=== PATIENT | female | born 1940 | race Caucasian/White ===

== ENCOUNTER 2019-07-16 17:30 | Inpatient (IN) | payer OTHER ==
--- NOTE | 2019-07-16 18:13 | RAD REPORT ---
EXAM DESCRIPTION: RAD - Chest Single View - 07/16/2019 6:00 pm CLINICAL HISTORY: DYSPNEA COMPARISON: None TECHNIQUE: AP portable chest image was obtained 07/16/2019 6:00 pm . FINDINGS: No peripheral mass or consolidation. No failure or volume overload. Fullness of the right side mediastinum is believed to be summation of vasculature in the affects of a slightly shallow insp iratory effort. Large hiatal hernia is present. Heart and vasculature are normal. No measurable pleur al effusion and no pneumothorax. No acute bony abnormality seen. No acute aortic findings suspected. IMPRESSION: No acute cardiopulmonary process. Large hiatal hernia.
[2019-07-16 18:27] LABS: Protime INR 0.93
[2019-07-16 18:53] LABS: ALT/SGPT 15 U/L (12-78); AST/SGOT 11 U/L (15-37); Albumin 3.4 g/dL (3.4-5.0); Alkaline Phosphatase 68 U/L (45-117); BUN Blood Urea Nitrogen 31 mg/dL (7-18); Bicarbonate 28 mmol/L (21-32); Bilirubin Direct < 0.1 mg/dL (0-0.2); Bilirubin Total 0.2 mg/dL (0.2-1.0); Glucose Level 113 mg/dL (74-106); Magnesium 2.6 mg/dL (1.8-2.4); NT PRO-BNP 290 pg/mL (<450); Potassium 4.5 mmol/L (3.5-5.1); Protein, Total 7.3 g/dL (6.4-8.2); Sodium Level 140 mmol/L (136-145); Troponin (Emerg Dept Use Only) < 0.02 ng/mL (0.0-0.045)
[2019-07-16 20:46] LABS: Absolute Lymphocytes (CBC) 4.8 K/uL (0.7-4.9); Basophils % 0.1 % (0-1.3); Hematocrit 19.7 % (36.0-45.0); Lymphocytes % 36.9 % (15.3-44.8); MPV 10.8 fL (7.6-11.3); RBC Red Blood Cell Count 3.08 M/uL (3.86-4.86)
[2019-07-16 20:51] LABS: Platelet Estimate DECR; Urine White Blood Cell Casts OK
[2019-07-16 20:52] LABS: Anisocytosis 1+; Blood Morphology Comment NOTED (NOT SEEN); Hypochromasia 3+; Platelets, Giant PRESENT
--- NOTE | 2019-07-16 21:17 | EDPHYS ---
Physician Documentation [facility] Name: Gallo Plascencia Age: 79 yrs Sex: Female : 1940 Arrival Date: 07/16/2019 Time: 17:33 Bed 4 Private MD: Tacho Hernandez R ED Physician Juan Diego Wiley HPI: 07/15 18:20 This 79 yrs old Female presents to ER via Ambulatory with complaints of snw Anemia. 18:20 Onset: The symptoms/episode began/occurred acutely. Associated signs and symptoms: snw Pertinent positives: fatigue. The patient has not experienced similar symptoms in the past. The patient has been recently seen by a physician: the patient's primary care provider, Dr. Ochoa. Historical: - Allergies: 17:43 No Known Allergies; em - Home Meds: 17:43 None [Active]; em - PMHx: 17:43 None; em - PSHx: 17:43 Hysterectomy; em - Immunization history:: Adult Immunizations not up to date. - Social history:: Smoking status: Patient denies any tobacco usage or history of. ROS: 18:14 Eyes: Negative for injury, pain, redness, and discharge, Neck: Negative for injury, snw pain, and swelling, Abdomen/GI: Negative for abdominal pain, nausea, vomiting, diarrhea, and constipation, Back: Negative for injury and pain, : Negative for injury, bleeding, discharge, and swelling, MS/Extremity: Negative for injury and deformity, mild right ankle pain with some pain moving up to hip Skin: Negative for injury, rash, and discoloration, Neuro: Negative for headache, weakness, numbness, tingling, and seizure. 18:14 Constitutional: Positive for fatigued over past few months, hx of allergies, pt began coughing and having severe congestion, Dr. Ochoa gave abx and steroids, Last week pt had another visit with labs. Dr. Ochoa had pt repeat labs Sunday. Pt instructed to come to ED and get blood 2nd to severe anemia. 18:14 ENT: Positive for nasal discharge, sinus congestion, sinus pain. 18:14 Cardiovascular: Positive for chest pain, with movement. 18:14 Respiratory: Positive for cough, dyspnea on exertion, orthopnea, shortness of breath. Exam: 18:09 Abdomen/GI: Soft, non-tender, with normal bowel sounds. No distension or tympany. No snw guarding or rebound. No evidence of tenderness throughout. Guaiac negative Back: No spinal tenderness. No costovertebral tenderness. Full range of motion. Skin: Warm, dry with normal turgor. Normal color with no rashes, no lesions, and no evidence of cellulitis. MS/ Extremity: Pulses equal, no cyanosis. Neurovascular intact. Full, normal range of motion. Neuro: Awake and alert, GCS 15, oriented to person, place, time, and situation. Cranial nerves II-XII grossly intact. Motor strength 5/5 in all extremities. Sensory grossly intact. Cerebellar exam normal. Normal gait. Psych: Awake, alert, with orientation to person, place and time. Behavior, mood, and affect are within normal limits. 18:09 Constitutional: This is a well developed, well nourished patient who is awake, alert, and in no acute distress. Head/Face: Normocephalic, atraumatic. Eyes: Pupils equal round and reactive to light, extra-ocular motions intact. Lids and lashes normal. Conjunctiva and sclera are non-icteric and not injected. Cornea within normal limits. Periorbital areas with no swelling, redness, or edema. ENT: Nares patent. No nasal discharge, no septal abnormalities noted. Tympanic membranes are normal and external auditory canals are clear. Oropharynx with redness and white patches, no swelling, or masses, exudates, or evidence of obstruction, uvula midline. Mucous membranes moist. Neck: Trachea midline, no thyromegaly or masses palpated, and no cervical lymphadenopathy. Supple, full range of motion without nuchal rigidity, or vertebral point tenderness. No Meningismus. Chest/axilla: Normal chest wall appearance and motion. Nontender with no deformity. No lesions are appreciated. 18:09 Cardiovascular: Rate: tachycardic, Rhythm: regular, Heart sounds: normal. 18:09 Respiratory: the patient does not display signs of respiratory distress, Respirations: shallow respirations, that is moderate, hoarse voice, Breath sounds: bronchial sounds, that are mild, are heard diffusely. Vital Signs: 17:39 BP 182 / 83; Pulse 107; Resp 20; Temp 98.6(O); Pulse Ox 97% on R/A; Weight 72.12 kg; em Height 5 ft. 3 in. (160.02 cm); Pain 0/10; 18:40 BP 150 / 60; Pulse 83; Resp 17; Pulse Ox 97% on R/A; tw2 19:30 BP 132 / 63; Pulse 79; Resp 18; Pulse Ox 98% on R/A; wh 20:30 BP 134 / 64; Pulse 78; Resp 18; Pulse Ox 100% on R/A; wh 23:00 BP 123 / 62; Pulse 89; Resp 18; Pulse Ox 98% ; wh 17:39 Body Mass Index 28.17 (72.12 kg, 160.02 cm) em MDM: 17:56 Patient medically screened. snw 21:13 Data reviewed: vital signs, nurses notes, lab test result(s), EKG, radiologic studies. w Physician consultation: Tera Messina was called at 21:14, was contacted at 21:14, regarding admission, to the telemetry unit. Dr. Messina does not want platelet transfusion. Lab notified for cancellation. Asked to make sure peripheral smear was set up.. 07/15 17:45 Order name: Basic Metabolic Panel; Complete Time: 18:53 snw 07/15 17:45 Order name: CBC with Diff; Complete Time: 21:55 snw 07/15 17:45 Order name: LFT's; Complete Time: 18:53 snw 07/15 17:45 Order name: Magnesium; Complete Time: 18:53 snw 07/15 17:45 Order name: NT PRO-BNP; Complete Time: 18:53 snw 07/15 17:45 Order name: PT-INR; Complete Time: 18:44 snw 07/15 17:45 Order name: Troponin (emerg Dept Use Only); Complete Time: 18:53 snw 07/15 17:45 Order name: TS snw 07/15 17:45 Order name: TSH; Complete Time: 18:53 snw 07/15 20:51 Order name: CBC Smear Scan EDMS 07/15 20:54 Order name: Add On-Lab snw 07/15 20:58 Order name: Ferritin; Complete Time: 21:37 snw 07/15 20:58 Order name: TIBC; Complete Time: 21:37 snw 07/15 20:58 Order name: Retic Count; Complete Time: 21:26 snw 07/15 17:45 Order name: XRAY Chest (1 view); Complete Time: 18:24 snw 07/15 17:45 Order name: EKG; Complete Time: 17:46 snw 07/15 17:45 Order name: Cardiac monitoring; Complete Time: 18:24 snw 07/15 17:45 Order name: EKG - Nurse/Tech; Complete Time: 18:24 snw 07/15 17:45 Order name: IV Saline Lock; Complete Time: 18:24 snw 07/15 17:45 Order name: Labs collected and sent; Complete Time: 18:24 snw 07/15 20:59 Order name: Haptoglobin EDWA 07/15 20:59 Order name: BB Add On EDWA 07/15 21:06 Order name: Packed RBC Leukored EDWA 07/15 21:11 Order name: ABO/RH no charge; Complete Time: 21:15 EDWA 07/15 21:30 Order name: Manual Differential; Complete Time: 21:55 EDWA 07/15 17:45 Order name: O2 Per Protocol; Complete Time: 18:45 snw 07/15 17:45 Order name: O2 Sat Monitoring; Complete Time: 18:45 snw 07/15 20:59 Order name: Consent for Blood Transfusion; Complete Time: 21:53 snw Administered Medications: No medications were administered Disposition: 07/16/19 21:17 Hospitalization ordered by Tera Messina for Inpatient Admission. Preliminary diagnosis are Anemia, unspecified, Thrombocytopenia, unspecified. - Bed requested for Telemetry/MedSurg (Inpatient). - Status is Inpatient Admission. - Condition is Stable. - Problem is new. - Symptoms are unchanged. Addendum: 07/18/2019 18:19 Co-signature as Attending Physician, Juan Diego Wiley MD. m a2 Signatures: Dispatcher [employer] [facility] Beatris Diaz, HAIR BOILER-C HAIR BOILER-Csnw Mert Manzano, RN LOVELY Aleah Henderson RN RN tl1 Hammad Berumen Juan Diego Wiley MD MD md2 Bakari Granados 2 Corrections: (The following items were deleted from the chart) 07/15 18:14 18:09 Constitutional: This is a well developed, well nourished patient who is awake, snw alert, and in no acute distress. Head/Face: Normocephalic, atraumatic. Eyes: Pupils equal round and reactive to light, extra-ocular motions intact. Lids and lashes normal. Conjunctiva and sclera are non-icteric and not injected. Cornea within normal limits. Periorbital areas with no swelling, redness, or edema. ENT: Nares patent. No nasal discharge, no septal abnormalities noted. Tympanic membranes are normal and external auditory canals are clear. Oropharynx with no redness, swelling, or masses, exudates, or evidence of obstruction, uvula midline. Mucous membranes moist. Neck: Trachea midline, no thyromegaly or masses palpated, and no cervical lymphadenopathy. Supple, full range of motion without nuchal rigidity, or vertebral point tenderness. No Meningismus. Chest/axilla: Normal chest wall appearance and motion. Nontender with no deformity. No lesions are appreciated. snw 20:59 20:58 FERRITIN+C.LAB.BRZ ordered. [facility] 21:16 21:13 Physician consultation: Tera Messina was called at 21:14, was contacted at snw 21:14, regarding admission, to the telemetry unit. Dr. Messina does not want platelet transfusion. Lab notified for cancellation, snw 21:18 20:59 BB Add On+BB.LAB.BRZ ordered. [facility] 21:18 21:00 ABO/RH typing ordered. [facility] 21:51 21:31 Slides for Pathologist Review ordered. [facility] 23:08 21:17 Hospitalization Ordered by Tera Messina for Inpatient Admission. Preliminary tl1 diagnosis is Anemia, unspecified; Thrombocytopenia, unspecified. Bed requested for Telemetry/MedSurg (Inpatient). Status is Inpatient Admission. Condition is Stable. Problem is new. Symptoms are unchanged. snw 23:08 23:08 07/16/2019 21:17 Hospitalization Ordered by Tera Messina for Inpatient mw2 Admission. Preliminary diagnosis is Anemia, unspecified; Thrombocytopenia, unspecified. Bed requested for Telemetry/MedSurg (Inpatient). Status is Inpatient Admission. Condition is Stable. Problem is new. Symptoms are unchanged. tl1 23:27 23:08 07/16/2019 21:17 Hospitalization Ordered by Tera Messina for Inpatient Admission. Preliminary diagnosis is Anemia, unspecified; Thrombocytopenia, unspecified. Bed requested for Telemetry/MedSurg (Inpatient). Status is Inpatient Admission. Condition is Stable. Problem is new. Symptoms are unchanged. mw2
--- NOTE | 2019-07-16 21:17 | ER ---
Nurse's Notes [facility] Name: Gallo Plascencia Age: 79 yrs Sex: Female : 1940 Arrival Date: 07/16/2019 Time: 17:33 Bed 4 Private MD: Tacho Hernandez R Diagnosis: Anemia, unspecified;Thrombocytopenia, unspecified Presentation: 07/15 17:39 Chief complaint: Patient states: has had shortness of breath with cough for 1 month, em also reports fatigue, had lab work done yesterday and PCP called her today and told her to come to the ED because severely anemic, denies rectal bleeding or coughing up blood, denies fever. Coronavirus screen: Proceed with normal triage. Patient denies a cough. Patient denies shortness of breath or difficulty breathing. Patient denies measured and/or subjective temperature greater than 100.4F prior to today's visit. Patient denies travel on a cruise ship or to a country the [facility] currently lists as an affected area. Patient denies contact with known and/or suspected case of COVID-19. Ebola Screen: Patient negative for fever greater than or equal to 101.5 degrees Fahrenheit, and additional compatible Ebola Virus Disease symptoms Patient denies exposure to infectious person. Patient denies travel to an Ebola-affected area in the 21 days before illness onset. No symptoms or risks identified at this time. Initial Sepsis Screen: Does the patient meet any 2 criteria? HR > 90 bpm. No. Patient's initial sepsis screen is negative. Does the patient have a suspected source of infection? No. Patient's initial sepsis screen is negative. Risk Assessment: Do you want to hurt yourself or someone else? Patient reports no desire to harm self or others. Onset of symptoms was June 17, 2019. 17:39 Method Of Arrival: Ambulatory em 17:39 Acuity: NIYAH 3 em Historical: - Allergies: 17:43 No Known Allergies; em - Home Meds: 17:43 None [Active]; em - PMHx: 17:43 None; em - PSHx: 17:43 Hysterectomy; em - Immunization history:: Adult Immunizations not up to date. - Social history:: Smoking status: Patient denies any tobacco usage or history of. Screenin:12 Abuse screen: Denies threats or abuse. Nutritional screening: No deficits noted. tw2 Tuberculosis screening: No symptoms or risk factors identified. Fall Risk None identified. Assessment: 17:45 Reassessment: "really i feel fine and i am surprised to be here but my doctor called tw2 and said i may need blood and that i am loosing it somewhere, but i havent had any bleeding". General: Appears in no apparent distress. well groomed, Behavior is calm, cooperative, appropriate for age. Pain: Denies pain. Neuro: Level of Consciousness is awake, alert, obeys commands, Oriented to person, place, time, situation. Cardiovascular: Heart tones S1 S2 Patient's skin is warm and dry. Respiratory: Airway is patent Respiratory effort is even, unlabored, Respiratory pattern is regular, symmetrical, Breath sounds are clear bilaterally. GI: No signs and/or symptoms were reported involving the gastrointestinal system. Abdomen is flat, Bowel sounds present X 4 quads. : No signs and/or symptoms were reported regarding the genitourinary system. EENT: No signs and/or symptoms were reported regarding the EENT system. Derm: No signs and/or symptoms reported regarding the dermatologic system. Musculoskeletal: Range of motion: intact in all extremities. 18:40 Reassessment: Patient appears in no apparent distress at this time. No changes from 2 previously documented assessment. Patient and/or family updated on plan of care and expected duration. Pain level reassessed. Patient is alert, oriented x 3, equal unlabored respirations, skin warm/dry/pink. 19:15 Reassessment: Patient appears in no apparent distress at this time. Patient and/or family updated on plan of care and expected duration. Pain level reassessed. Patient is alert, oriented x 3, equal unlabored respirations, skin warm/dry/pink. 20:30 Reassessment: Patient appears in no apparent distress at this time. No changes from previously documented assessment. Patient and/or family updated on plan of care and expected duration. Pain level reassessed. Patient is alert, oriented x 3, equal unlabored respirations, skin warm/dry/pink. Explained need to recollect blood as initial draw hemmolyzed. 22:00 Reassessment: Patient appears in no apparent distress at this time. No changes from previously documented assessment. Patient and/or family updated on plan of care and expected duration. Pain level reassessed. Patient is alert, oriented x 3, equal unlabored respirations, skin warm/dry/pink. Explained POC need for admit. 23:09 Reassessment: Patient appears in no apparent distress at this time. No changes from previously documented assessment. Patient is alert, oriented x 3, equal unlabored respirations, skin warm/dry/pink. Vital Signs: 17:39 BP 182 / 83; Pulse 107; Resp 20; Temp 98.6(O); Pulse Ox 97% on R/A; Weight 72.12 kg; em Height 5 ft. 3 in. (160.02 cm); Pain 0/10; 18:40 BP 150 / 60; Pulse 83; Resp 17; Pulse Ox 97% on R/A; tw2 19:30 BP 132 / 63; Pulse 79; Resp 18; Pulse Ox 98% on R/A; wh 20:30 BP 134 / 64; Pulse 78; Resp 18; Pulse Ox 100% on R/A; wh 23:00 BP 123 / 62; Pulse 89; Resp 18; Pulse Ox 98% ; wh 17:39 Body Mass Index 28.17 (72.12 kg, 160.02 cm) em ED Course: 17:33 Patient arrived in ED. am2 17:33 Tacho Hernandez MD is Private Physician. am2 17:43 Triage completed. em 17:43 Arm band placed on. em 17:44 Beatris Diaz FNP-C [facility]. snw 17:44 Juan Diego Wiley MD is Attending Physician. snw 17:50 Bed in low position. Call light in reach. quality assurance monitor final on. Pulse ox on. NIBP on. tw2 18:01 XRAY Chest (1 view) In Process Unspecified. EDMS 18:16 Inserted saline lock: 20 gauge in left antecubital area, using aseptic technique. Blood tw2 collected. 18:21 Warm blanket given. [facility] 18:22 Initial lab(s) drawn, by tn, sent to lab. EKG done, by ED staff, reviewed by Juan Diego Wiley MD T\\T\\S collected, blood band applied to patient. 18:23 TSH Sent. Lanie 18:23 TS Sent. Lanie 18:23 Basic Metabolic Panel Sent. 5 18:23 CBC with Diff Sent. 5 18:23 LFT's Sent. 5 18:23 Magnesium Sent. 5 18:23 NT PRO-BNP Sent. 5 18:23 PT-INR Sent. 5 18:24 Troponin (emerg Dept Use Only) Sent. 5 18:39 Zeynep San, RN is Primary Nurse. tw2 18:43 Served as a vp analytics during rectal exam. 5 19:11 Report given to LOVELY Cueva. [facility] 21:16 Tera Messina is Hospitalizing Provider. [facility] 23:27 Patient admitted, IV remains in place. Administered Medications: No medications were administered Outcome: 21:17 Decision to Hospitalize by Provider. [facility] 23:26 Admitted to Med/surg accompanied by tech, via wheelchair, room 211, with chart, Report called to Apple Dumont 23:26 Condition: stable 23:26 Instructed on the need for admit. 23:27 Patient left the ED. Signatures: Dispatcher [employer] EDBeatris Wang, COLLAR STARCHER-C COLLAR STARCHER-Csnw Mert Manzano, RN RN Zeynep Ayon, RN RN 2 Stephania Junior 5 Lia Khalil Hammad Melendez
[2019-07-16 21:22] LABS: RBC Red Blood Cell Count 3.22 M/uL (3.86-4.86)
[2019-07-16 21:29] LABS: Ferritin 2.1 ng/mL (8-388)
--- NOTE | 2019-07-16 23:13 | P.HP ---
Certification for Inpatient Patient admitted to: Observation With expected LOS: <2 Midnights Practitioner: I am a practitioner with admitting privileges, knowledge of patient current condition, hospital course, and medical plan of care. Services: Services provided to patient in accordance with Admission requirements found in Title 42 Section 412.3 of the Code of Federal Regulations Patient History Date of Service: 07/16/19 Reason for admission: Anemia History of Present Illness: 79-year-old woman with a history of allergic reaction and asthma was referred to the emergency department by her PCP because her hemoglobin is low. Patient reports recent fatigue especially with exertion. She denied any melena or bright red blood per rectum or vagina bleeding or hematemesis. She reports a recent sores on her tongue and lips. Her hemoglobin the ED noted to be 5.5. [place] [address]. Iron profile shows very low iron percentage saturation denoting severe iron deficiency. Patient is hospitalized for further management. Allergies tetracycline Adverse Reaction (Verified 07/16/19 23:38) Anaphylaxis Home Medications: NK [No Home Meds] 07/17/19 - Past Medical/Surgical History Diabetic: No -: Asthma -: Allergy -: GERD -: Right ankle surgery -: Skin squamous cell carcinoma excision - Family History Mother -: Cancer (Brain) - Social History Smoking Status: Never smoker Alcohol use: No CD- Drugs: No Place of Residence: Home Review of Systems Other: Except as documented, all other systems reviewed and negative. Physical Examination - Physical Exam General: Alert, In no apparent distress, Oriented x3 HEENT: Normocephalic, PERRLA, Mucous membr. moist/pink, Sclerae nonicteric Neck: Supple, JVD not distended Respiratory: Clear to auscultation bilaterally, Normal air movement Cardiovascular: No edema, Regular rate/rhythm, Normal S1 S2 Capillary refill: <2 Seconds Gastrointestinal: Normal bowel sounds, Soft and benign, Non-distended, No tenderness Musculoskeletal: No swelling, No erythema Integumentary: No rashes Neurological: Normal speech, Normal strength at 5/5 x4 extr - Studies Laboratory Data (last 24 hrs) 07/16/19 20:34: WBC 13.0 H, Hgb 5.5 L*, Hct 19.7 L*, Plt Count 19 L* 07/16/19 18:00: PT 11.0, INR 0.93 07/16/19 18:00: Sodium 140, Potassium 4.5, BUN 31 H, Creatinine 1.18, Glucose 113 H, Magnesium 2.6 H, Total Bilirubin 0.2, AST 11 L, ALT 15, Alkaline Phosphatase 68 Assessment and Plan - Problems (Diagnosis) (1) Anemia Current Visit: Yes Status: Acute (2) Iron deficiency Current Visit: Yes Status: Acute (3) Thrombocytopenia Current Visit: Yes Status: Acute (4) Asthma Current Visit: Yes Status: Acute - Plan Place under observation. Obtain peripheral smear. Transfuse 2 units PRBC. Patient is not actively bleeding. Will not transfuse platelets at this time until levels falls below 15, on there is active bleeding. The patient will need outpatient follow up with hematology for bone marrow biopsy and colonoscopy. Iron supplementation after blood transfusion. Monitor CBC. Albuterol p.r.n. Protonix - Advance Directives Does patient have a Living Will: No Does patient have a Durable POA for Healthcare: No
[2019-07-16 23:38] VITALS: O2SAT 98
[2019-07-16] MEDS ORDERED: ONDANSETRON 4 MG/2 ML VIAL IV PRN (23:42)
[2019-07-16] MEDS ORDERED: ALBUTEROL 2.5 MG/3 ML NEB SOL NEB PRN (23:42)
[2019-07-17] MEDS: ACETAMINOPHEN 500 MG TAB PO PRN ×3 (00:22→20:53)
[2019-07-17] MEDS ORDERED: NA CHLORIDE 0.9% 250 ML ONE (00:34)
[2019-07-17 01:14] VITALS: BMI 28.0
[2019-07-17 04:31] LABS: Urine Appearance CLEAR; Urine Bilirubin NEGATIVE (NEG); Urine Blood NEGATIVE (NEG); Urine Color YELLOW; Urine Glucose NEGATIVE (NEG); Urine Protein NEGATIVE (NEG); Urine Specific Gravity 1.015 (1.005-1.030); Urine Urobilinogen 0.2 mg/dL (0.2-1.0)
[2019-07-17 05:26] LABS: Urine Microscopic Reflex ORDER UMIC
[2019-07-17 05:44] LABS: Urine Bacteria <20 /HPF (<20); Urine Culture Reflex Order REFLEXED; Urine RBC NONE SEEN /HPF (NONE SEEN)
[2019-07-17] MEDS: DIPHENHYDRAMINE 25 MG TAB/CAP PO PRN ×2 (06:12→20:51)
[2019-07-17] MEDS: PANTOPRAZOLE 40MG TABLET PO SCH (06:12)
[2019-07-17 07:19] LABS: Potassium 4.2 mmol/L (3.5-5.1)
[2019-07-17 07:45] LABS: MPV 11.2 fL (7.6-11.3); RBC Red Blood Cell Count 3.93 M/uL (3.86-4.86)
[2019-07-17 08:15] LABS: Anisocytosis 1+; Blood Morphology Comment NOTED (NOT SEEN); Hypochromasia 2+; Ovalocytes 1+; Platelet Estimate DECR
--- NOTE | 2019-07-17 11:15 | EKG ---
Test Date: 2019-07-16 Test Time: 18:27:34 Medical Field Representative: HB MEASUREMENT RESULTS: Intervals: Rate: 84 LA: 134 QRSD: 84 QT: 360 QTc: 425 Marcell: P: 39 LA: 134 QRS: 2 T: 11 INTERPRETIVE STATEMENTS: Normal sinus rhythm Normal ECG No previous ECG available for comparison Electronically Signed On 07-17-19 11:13:38 CDT by Elais Soriano
[2019-07-17] MEDS ORDERED: ALBUTEROL 2.5 MG/3 ML NEB SOL NEB PRN (16:00)
--- NOTE | 2019-07-17 19:50 | PN ---
Date of Progress Note: 07/17/2019 Patient is seen and examined. Chart reviewed and case discussed with RN and Dr. Kelly as well as Dr. Betancur. Patient denies any GI bleed or bleed. I also contacted primary care physician, Dr. Hernandez. She originally does not draw any CBCs, does not have any old labs. Per the patient, she will dig into her old records, which were on hard drive. In the meantime, records from [facility] from 2 years ago have been requested. Medications: List reviewed. Code Status: Full. Physical Examination: Vital Signs: Temperature 96.9, heart rate 82, blood pressure 140/67, respirations 17, O2 99% on room air. General: Awake, alert, and oriented x3. No acute distress. Elderly female. CV: S1, S2. Regular rate and rhythm. Peripheral pulses present. Respiratory: No wheezing or stridor. Moving air well bilaterally. No use of accessory muscles. Gastrointestinal: Abdomen is soft, nontender, nondistended. Positive bowel sounds. No guarding or rigidity. Extremities: No clubbing, cyanosis, or edema. No calf tenderness. Neurologic: Nonfocal. Laboratory Data: Sodium 141, potassium 4.2, chloride 110, CO2 of 27, BUN 24, creatinine 0.96, glucose 96, calcium 8.6. Iron panel shows iron level of 10, TIBC is 539, transferrin 385, ferritin 2.1. WBC 12.6, H and H 8.3 and 28, platelets 20. Assessment: An 79-year-old female with, 1. Acute anemia likely iron deficiency, unclear etiology, may be due to myelodysplastic syndrome. Did not have any acute GI bleed or bleed, however does have history of ulcers and will need outpatient GI followup. Has never had a colonoscopy and will need to have screening colonoscopy for occult malignancy. Patient has been transfused 2 units of PRBCs. Feels significantly better. No further shortness of breath with exertion. The patient will need to be on iron supplements and will benefit from IV iron infusions. I did speak to Dr. Kelly, who recommends peripheral blood smear. We will also obtain ultrasound of the abdomen to rule out splenomegaly. 2. Thrombocytopenia, unclear etiology. No history of cirrhosis or alcohol use or hepatitis. We will check abdominal ultrasound. No need for transfusion at this time per Hematology. No active bleeding. We will obtain previous records to compare platelet levels. 3. Intermittent asthma. Well controlled. Continue with Singulair and albuterol p.r.n. 4. Gastroesophageal reflux disease. Continue PPI. Plan: Follow up on peripheral blood smear, old labs, and repeat CBC in a.m. DC in next 24-48 hours after workup is obtained. HELEN Voice ID: [id number] Report ID: [id number] BROCK
[2019-07-17] MEDS: FERROUS SULFATE 325 MG TAB PO SCH (20:51)
[2019-07-18] MEDS: PANTOPRAZOLE 40MG TABLET PO SCH (05:59)
[2019-07-18 06:24] LABS: Hematocrit 29.9 % (36.0-45.0); MPV 8.2 fL (7.6-11.3); RBC Red Blood Cell Count 4.36 M/uL (3.86-4.86)
[2019-07-18 08:50] LABS: Anisocytosis 3+; Blood Morphology Comment NOTED (NOT SEEN); Hypochromasia 1+; Platelet Estimate DECR; Poikilocytosis 2+; Polychromasia 2+
--- NOTE | 2019-07-18 09:15 | RAD REPORT ---
EXAM DESCRIPTION: US - Liver Only - 07/18/2019 8:55 am CLINICAL HISTORY: eval liver and spleen, low plts, poss cirrhosis COMPARISON: No comparisons TECHNIQUE: Sonographic evaluation of the right upper quadrant was performed as a dedicated liver ult rasound study. FINDINGS: The liver is 14-15 cm in maximum dimension. No nodularity of the capsule. There are no foc al liver lesions present. Liver parenchyma has a slightly heterogeneous echogenicity. This is a very nonspecific finding. Doppler evaluation shows no abnormality of the portal vein. Spleen is 8 cm with no focal abnormality. No ascites of the upper abdomen. IMPRESSION: Liver ultrasound showing no focal or suspicious finding.
[2019-07-18] MEDS: FERROUS SULFATE 325 MG TAB PO SCH (09:46)
[2019-07-18] MEDS: DIPHENHYDRAMINE 25 MG TAB/CAP PO PRN (09:47)
--- NOTE | 2019-07-18 12:42 | DS ---
Consultants: Dr. Kelly with Hematology, Dr. Betancur with GI. Discharge Diagnoses: 1.Acute anemia likely from iron deficiency. 2.Thrombocytopenia. 3.Intermittent asthma and allergic rhinitis. 4.Gastroesophageal reflux disease. Hospital Course: Patient is an 79-year-old female with past medical history of asthma, allergic rhin itis, GERD, comes in because of low hemoglobin levels detected by her PCP. In the ER, her hemoglobin was 5.5. She had been feeling dyspnea with exertion for several weeks. Patient's iron profile show s very low iron and elevated TIBC consistent severe iron deficiency. Her MCV was also very low. She also had a very low platelet count of 19,000. Patient was transfused 2 units of PRBCs. No platelet s were transfused as she was not actively bleeding. Hemoccult was ordered, but still not back. UA w as negative. Culture did not show any growth. Her hemoglobin remained stable after transfusion. David sanz did have continued low platelets. Spoke with primary care physician who did not have readily avail able access to her previous records. Previous records from [place] were requested. 2 years ago, chang dang had ankle surgery, however, it is doubtful that her platelets were low during the time in the s urgery specially below 50. Ultrasound of liver and spleen were done which were normal. No cirrhosis or splenomegaly was seen. Peripheral blood smear was done, which did not show any acute leukemia. Dr. Betancur was also consulted for possible GI workup as patient has iron deficiency in her age grou p. She may have some occult malignancy. She has never had a colonoscopy. She will need a colonosco py, EGD. Patient was then doing better. Hemoglobin is stable. Dr. Kelly did not feel that she neede d any platelet transfusions or anything acute. She will need to follow up in her office at the [facility] on Sunday at 8:30 a.m. for bone marrow biopsy for further elucidation and for etiology of her thrombocytopenia and anemia. 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 Patient was then cleared for discharge, sent home in a stable condition. Activity: As tolerated. Medications: As per medication reconciliation list. Followup: Follow up with primary care physician in 1 week. Follow up with Dr. Kelly, patent drafter, W July 22 at 8:30 a.m. Follow up with GI, Dr. Betancur in 2 weeks. Return to ER for worsen ing condition. Diet: Heart healthy. Physical Examination: General: Awake, alert, oriented x3, not in any acute distress, elderly female. CV: S1, S2. Respiratory: Moving air well bilaterally. No wheezing or stridor. Gastrointestinal: Abdomen is soft, nontender, nondistended. Positive bowel sounds. Extremities: No clubbing, cyanosis, or edema. Neurologic: Nonfocal. Total time spent discharging patient was 37 minutes. /STEPHANY Voice ID: [id number] Report ID: [id number]
[2019-07-18 14:36] VITALS: BP 151/69; TEMP 97.6
== END 2019-07-18 12:52 | disposition home or self-care (01) | DRG 812 ==
LOC: ER 17:30 → ERHOLD 23:04 → 2ND 23:27 → OBSVTOIN 07-17 14:15
PROVIDERS: ADMIT Internal Medicine; ATTEND Family Medicine
PROC: 30233N1 Transfusion of Nonautologous Red Blood Cells into Peripheral Vein, Percutaneous Approach (ICD-10-PCS; principal; 2019-07-17)
DX: D50.9 Iron deficiency anemia, unspecified (principal); K21.9 Gastro-esophageal reflux disease without esophagitis; D69.6 Thrombocytopenia, unspecified; J45.20 Mild intermittent asthma, uncomplicated; Z90.710 Acquired absence of both cervix and uterus; Z88.1 Allergy status to other antibiotic agents
CPT/HCPCS: 36415; 71045; 76705; 80048; 80076; 81003; 81015; 82728; 83010; 83540; 83735; 83880; 84443; 84466; 84484; 85025; 85044; 85610; 86850; 86900; 86901; 87086; 87088; 93005; 99285; J7030; P9016